=== PATIENT | male | born 1955 | race Caucasian/White ===

== ENCOUNTER 2017-04-23 20:29 | Emergency (ER) | payer SELFPAY ==
[2017-04-23 20:38] VITALS: BP 158/77; PULSE 81; RESP 16; TEMP 98; O2SAT 96
--- NOTE | 2017-04-23 21:41 | C.PDOC ---
History Of Present Illness 61 y/o male presents to the ED for evaluation of pain to left 4th finger which began around 5 days ago. Patient states he accidentally struck the finger with a hammer 5 days ago. Today, patient accidentally hit his hand against the edge of a table and notes his pain as worsened since. He denies any other trauma/ injuries, active bleeding, or extremity numbness/weakness. Time Seen by Provider: 04/23/17 20:49 Chief Complaint (Nursing): Finger,Hand,&Wrist History Per: Patient History/Exam Limitations: no limitations Onset/Duration Of Symptoms: Days (5) Current Symptoms Are (Timing): Still Present Quality: "Pain" Additional History Per: Patient Past Medical History Reviewed: Historical Data, Nursing Documentation, Vital Signs Vital Signs: Last Vital Signs Temp 98.0 F 04/23/17 20:36 Pulse 81 04/23/17 20:36 Resp 16 04/23/17 20:36 BP 158/77 H 04/23/17 20:36 Pulse Ox 96 04/24/17 01:12 - Medical History PMH: HTN Surgical History: Tonsillectomy Family History: States: Unknown Family Hx - Social History Hx Alcohol Use: No Hx Substance Use: No - Immunization History Hx Tetanus Toxoid Vaccination: No Hx Influenza Vaccination: No Hx Pneumococcal Vaccination: No Review Of Systems Musculoskeletal: Positive for: Hand Pain (left 4th finger ) Neurological: Negative for: Weakness, Numbness Physical Exam - Physical Exam Appears: Non-toxic, No Acute Distress Skin: Normal Color, Warm, Dry Eye(s): bilateral: Normal Inspection Oral Mucosa: Moist Neck: Supple Extremity: No Normal ROM (limited secondary to pain ), Tenderness (left DIP joint ), Capillary Refill (less than 2 seconds ), Swelling (mild to left distal fingertip ), Other (+contused tissue to lateral nail border of left 4th digit. No subungal hematoma) Pulses: Left Radial: Normal Neurological/Psych: Oriented x3, Normal Speech, Normal Cognition Gait: Steady ED Course And Treatment O2 Sat by Pulse Oximetry: 96 (on RA) Pulse Ox Interpretation: Normal Medical Decision Making Medical Decision Making: Impression: 61 y/o male with contusion to left 4th digit Plan: * left hand XR * Ultram PO * reassess and disposition Progress: left hand XR ordered, review shows possible nondisplaced fracture to the affected phalanx. Patient received Ultram PO. Xeroform dressing and aluminum finger splint applied to affected area. Patient tolerated well. On reassessment, patient is resting comfortably, showing no signs of distress, and reports an improvement in his symptoms. Patient is stable for discharge and is advised to follow up with orthopedic care within 1-2 days for further evaluation. Disposition Counseled Patient/Family Regarding: Need For Followup, Rx Given - Disposition Referrals: Raj Koenig MD [Staff Provider] - Disposition: HOME/ ROUTINE Disposition Time: 21:39 Condition: STABLE Additional Instructions: XRay muestra la fractura de dedo y la frula se bertrand aplicado. Por favor mantenga la frula madelyn 4 semanas. Puede cambiar el vendaje diariamente. Puede rizwana cualquier analgsico Tylenol o Advil para cualquier dolor Instructions: Finger Fracture (ED) Forms: [facility] (Portuguese) Print Language: UKRAINIAN - POA Present On Arrival: None - Clinical Impression Clinical Impression: Fracture of finger of left hand - PA / SHODER FILLER / Resident Statement MD/DO has reviewed & agrees with the documentation as recorded. - Scribe Statement The provider has reviewed the documentation as recorded by the Scribe (Madelyn Delgadillo) All medical record entries made by the Scribe were at my direction and personally dictated by me. I have reviewed the chart and agree that the record accurately reflects my personal performance of the history, physical exam, medical decision making, and the department course for this patient. I have also personally directed, reviewed, and agree with the discharge instructions and disposition.
--- NOTE | 2017-04-24 12:38 | RAD ---
PROCEDURE: Left ring finger radiographs. HISTORY: injury to finger distally with hammer COMPARISON: None. TECHNIQUE: AP radiograph of the left hand, as well as spot oblique and lateral images of left ring finger were obtained. FINDINGS: LEFT RING FINGER: The current study reveals a tiny bony like density within the adjacent to the distal ulnar aspect middle phalanx 4th finger that could represent a tiny avulsion fracture versus some old posttraumatic mineralization. Additionally, there appears to be disruption of the distal soft tissues surrounding the distal tuft distal phalanx 4th finger most pronounced along the radial margin. Clinical correlation with physical exam. JOINTS: Joint spaces preserved SOFT TISSUES: There is a small radiopaque density which overlies the soft tissues (ulnar aspect) proximal margin proximal phalanx left thumb. Second small radiopaque density overlies the distal radial aspect proximal phalanx 2nd finger. These could represent radiopaque foreign bodies. Clinical correlation recommended. OTHER FINDINGS: IMPRESSION: There is a tiny bony like density within the adjacent to the distal ulnar aspect middle phalanx 4th finger that could represent a tiny avulsion fracture versus some old posttraumatic mineralization. . Additionally, there appears to be disruption of the distal soft tissues surrounding the distal tuft distal phalanx 4th finger most pronounced along the radial margin. Clinical correlation with physical exam.
== END 2017-04-23 22:11 | disposition home or self-care (01) ==
LOC: C.ER 20:29
DX: S62.635A Displaced fracture of distal phalanx of left ring finger, initial encounter for closed fracture (principal); W22.03XA Walked into furniture, initial encounter; Y92.009 Unspecified place in unspecified non-institutional (private) residence as the place of occurrence of the external cause

== ENCOUNTER 2017-11-26 18:17 | Emergency (ER) | payer SELFPAY ==
[2017-11-26 18:23] VITALS: BP 148/97; PULSE 92; RESP 16; TEMP 98; O2SAT 97
--- NOTE | 2017-11-26 19:15 | C.PDOC ---
History Of Present Illness 62 year old male presents to the ED for suture removal. Patient had sutures placed on the dorsum of his left hand 9 days ago. Patient states the area is well-healing and denies pain, drainage, fever, chills. Time Seen by Provider: 11/26/17 18:25 Chief Complaint (Nursing): Suture/Staple Removal History Per: Patient History/Exam Limitations: no limitations Onset/Duration Of Symptoms: Days Ago (9) Current Symptoms Are (Timing): Still Present Location Of Injury: Left: Hand Quality Of Symptoms: denies: Painful, Itching, Swollen, Draining Additional History Per: Patient Past Medical History Reviewed: Historical Data, Nursing Documentation, Vital Signs Vital Signs: Last Vital Signs Temp 98 F 11/26/17 18:21 Pulse 92 H 11/26/17 18:21 Resp 16 11/26/17 18:21 BP 148/97 H 11/26/17 18:21 Pulse Ox 97 11/26/17 20:34 - Medical History PMH: HTN Surgical History: Tonsillectomy Family History: States: Unknown Family Hx - Social History Hx Alcohol Use: No Hx Substance Use: No - Immunization History Hx Tetanus Toxoid Vaccination: No Hx Influenza Vaccination: No Hx Pneumococcal Vaccination: No Review Of Systems Skin: Positive for: Other (suture removal left hand ) Physical Exam - Physical Exam Appears: Non-toxic, No Acute Distress Skin: Warm, Dry, Other (5 sutures over dorsal aspect of left 2nd metacarpal. wound is well-healing. no drainage ) Extremity: Normal ROM, Capillary Refill (less than 2 seconds ) Neurological/Psych: Oriented x3, Normal Speech, Normal Cognition, Normal Motor, Normal Sensation ED Course And Treatment O2 Sat by Pulse Oximetry: 97 (on RA ) Pulse Ox Interpretation: Normal Medical Decision Making Medical Decision Making: Progress: five sutures removed. patient tolerated well without any difficulties. Disposition - Disposition Disposition: HOME/ ROUTINE Disposition Time: 19:13 Condition: GOOD Additional Instructions: Mantenga la herida curada limpia y seca. Todava continuar sanando desde el interior madelyn las prximas semanas. as que erika cualquier movimiento extenuante con la mano. Tylenol o Motrin para el dolor si es necesario. Keep healed wound clean and dry. It will still continue to heal from the inside for the next few weeks. so avoid any strenuous movement with hand. Tylenol or Motrin for pain if needed. Instructions: Stitches Removal Forms: Gen Discharge Inst [place], [facility] ([place]an), [facility] (Slovak) Print Language: NAMIBIAN - Clinical Impression Clinical Impression: Removal of suture - PA / LETTERER / Resident Statement MD/DO has reviewed & agrees with the documentation as recorded. - Scribe Statement The provider has reviewed the documentation as recorded by the Scribe (Madelyn Delgadillo) All medical record entries made by the Scribe were at my direction and personally dictated by me. I have reviewed the chart and agree that the record accurately reflects my personal performance of the history, physical exam, medical decision making, and the department course for this patient. I have also personally directed, reviewed, and agree with the discharge instructions and disposition.
== END 2017-11-26 19:20 | disposition home or self-care (01) ==
LOC: C.ER 18:17
DX: Z48.02 Encounter for removal of sutures (principal)